=== PATIENT | female | born 1940 | race Hispanic/Latino ===

== ENCOUNTER 2019-02-12 12:55 | Observation (INO) | payer MEDICARE, OTHER ==
[~2019-02-12] VITALS: Ht 152.4 cm; Wt 79.2 kg
[~2019-02-12 12:55] MED LIST: ASPIR 8181 MG PO; CLONIDINE HCL0.3 MG PO; GLIMEPIRIDE4 MG PO; HYDRALAZINE HCL25 MG PO; LEVOTHROID100 MC1; LOSARTAN-HCTZ1 EAC2 PO; PANTOPRAZOLE SO40 MG PO; SIMVASTATIN40 MG PO; Z.0.BENTYL10 MG; Z.0.CLONIDINE HCL0.2; Z.0.LISINOPRIL40 MG; Z.0.LOPRESSOR50 MG; Z.0.SIMVASTATIN40 MG; [UNRECOGNIZED DRUG - OTHER]
--- OUTSIDE RECORDS SUMMARY | 2019-02-12 13:02 | XMS REPORT | Clinical Summary ---
Author Author [facility] Organization [facility] Address Unknown Phone Unavailable Care Team Providers [facility] Assistant Name Role Phone Reid Love MD PCP Allergies No Known Allergies Medications End Date Status Medication Sig Dispensed Refills Start Date Active clopidogrel (PLAVIX) 75 Take 75 mg by 0 mg tablet mouth daily. Active aspirin (ECOTRIN) 81 MG Take 81 mg by 0 enteric coated tablet mouth daily. Active simvastatin (ZOCOR) 40 MG Take 40 mg by 0 tablet mouth nightly. Active lisinopril Take 40 mg by 0 (PRINIVIL,ZESTRIL) 40 mg mouth daily. tablet Active hydrALAZINE (APRESOLINE) Take 25 mg by 0 25 MG tablet mouth 3 (three) times a day. Active triamterene-hydrochloroth Take 1 0 iazid (DYAZIDE) 37.5-25 capsule by mg per capsule mouth every morning. Active clonIDINE HCl (CATAPRES) Take 1.5 mg 0 0.3 MG tablet by mouth 2 (two) times a day. Active amLODIPine (NORVASC) 5 mg Take 5 mg by 0 tablet mouth daily. Active glimepiride (AMARYL) 4 MG Take 4 mg by 0 tablet mouth daily before breakfast. Active therapeutic multivitamin Take 1 tablet 0 (THERAGRAN) tablet by mouth daily. Active dicyclomine (BENTYL) 10 Take 10 mg by 0 MG capsule mouth 4 (four) times a day before meals and nightly. Active meclizine (ANTIVERT) 25 Take 25 mg by 0 mg tablet mouth 3 (three) times a day as needed for dizziness. Active omeprazole (PriLOSEC) 40 Take 40 mg by 0 MG capsule mouth daily. 09/20/2018 metoprolol tartrate Take 1 tablet 60 tablet 0 (LOPRESSOR) 25 mg tablet (25 mg total) 9 by mouth 2 (two) times a day for 30 days. Active Problems Problem Noted Date Left carotid stenosis 08/17/2018 S/P carotid endarterectomy 08/17/2018 Essential hypertension 08/17/2018 Acute blood loss as cause of postoperative anemia 08/17/2018 Encounters Care Team Description Date Type Specialty Miguel Scott 08/17/2018 Anesthesia Cardiothoracic Surgery Event Roberto Carlos Wilder MD ENDARTERECTOMY, CAROTID 08/17/2018 Surgery Cardiothoracic Surgery Roberto Carlos Wilder MD S/P carotid endarterectomy (Primary Dx); Carotid occlusion, left 08/17/2018 Hospital Cardiology - Encounter 08/21/2018 Lyubov Baker 08/17/2018 Telephone Employee Health Roberto Carlos Wilder MD Left carotid stenosis (Primary Dx) 08/09/2018 Office Visit Cardiovascular after 02/11/2018 Family History Medical History Relation Name Comments Ulcers Father Ulcers Mother Relation Name Status Comments Father Mother Social History Date Tobacco Use Types Packs/Day Years Used Never Assessed Sex Assigned at Date Recorded Not on file Industry Job Start Date Occupation Not on file Not on file Not on file Travel End Travel History Travel Start No recent travel history available. Last Filed Vital Signs Time Taken Vital Sign Reading 08/21/2018 7:34 AM CONTROLS PROJECT ENGINEER Blood Pressure 165/74 08/21/2018 7:34 AM CONTROLS PROJECT ENGINEER Pulse 79 08/21/2018 7:34 AM CONTROLS PROJECT ENGINEER Temperature 36.7 C (98.1 F) 08/21/2018 7:34 AM CONTROLS PROJECT ENGINEER Respiratory Rate 21 08/21/2018 7:34 AM CONTROLS PROJECT ENGINEER Oxygen Saturation 97% - Inhaled Oxygen - Concentration 08/21/2018 5:54 AM CONTROLS PROJECT ENGINEER Weight 75.7 kg (166 lb 12.8 oz) 08/17/2018 7:12 AM CONTROLS PROJECT ENGINEER Height 152.4 cm (5') 08/17/2018 7:12 AM CONTROLS PROJECT ENGINEER Body Mass Index 32.58 Plan of Treatment Health Maintenance Due Date Last Done Comments SHINGLES VACCINES (#1) 1991 65+ PNEUMOCOCCAL VACCINE 2006 (1 of 2 - PCV13) INFLUENZA VACCINE 03/01/2019 Implants Device Identifier Shelf Expiration Date Model / Serial / Lot Implanted Type Area Manufactur er 02/02/2023 [id number] / / Clip Ligtng Caryn Hemoclip Plus W/ Medical N/A: N/A TELEFLEX Tape Ti Med - [id number] Clips for MEDICAL Implanted: Qty: 1 on 08/17/2018 by Roberto Carlos Muse MD Use 01/26/2022 [id number] / / [id number] Kit Shunt Crtd Artery Rdopq Line Surgical N/A: N/A COVIDIEN 6in Strl Morton - [id number] Implants; MARIAELENA Implanted: 08/17/2018 (Quantity not Expanders; HEALTHCARE on file) Extenders; Surgical Wires 12/29/2022 [id number] / / [id number] Fabric Vasclr Grft Velour 3in 3in Vascular N/A: N/A ATRIUM 0.8cm 7.6cm Kaleb Hemashield - Graft MEDICAL [id number] STEPHANIE Implanted: 08/17/2018 (Quantity not on file) Procedures Comments Procedure Name Priority Date/Time Associated Diagnosis POC GLUCOSE Routine 08/21/2018 7:33 AM CONTROLS PROJECT ENGINEER POC GLUCOSE Routine 08/20/2018 10:03 PM CONTROLS PROJECT ENGINEER POC GLUCOSE Routine 08/20/2018 5:13 PM CONTROLS PROJECT ENGINEER POC GLUCOSE Routine 08/20/2018 12:32 PM CONTROLS PROJECT ENGINEER HC COMPLETE BLD COUNT STAT 08/20/2018 W/AUTO DIFF 9:50 AM CONTROLS PROJECT ENGINEER ECG 12-LEAD Routine 08/20/2018 8:54 AM CONTROLS PROJECT ENGINEER ECG 12-LEAD STAT 08/20/2018 8:53 AM CONTROLS PROJECT ENGINEER ESTIMATED GFR STAT 08/20/2018 8:45 AM CONTROLS PROJECT ENGINEER MAGNESIUM LEVEL STAT 08/20/2018 8:45 AM CONTROLS PROJECT ENGINEER BASIC METABOLIC PANEL STAT 08/20/2018 8:45 AM CONTROLS PROJECT ENGINEER TROPONIN STAT 08/20/2018 8:44 AM CONTROLS PROJECT ENGINEER THYROID STIMULATING STAT 08/20/2018 HORMONE 8:44 AM CONTROLS PROJECT ENGINEER POC GLUCOSE Routine 08/20/2018 8:03 AM CONTROLS PROJECT ENGINEER ECG 12-LEAD Routine 08/20/2018 6:28 AM CONTROLS PROJECT ENGINEER POC GLUCOSE Routine 08/20/2018 4:52 AM CONTROLS PROJECT ENGINEER POC GLUCOSE Routine 08/19/2018 9:03 PM CONTROLS PROJECT ENGINEER POC GLUCOSE Routine 08/19/2018 5:17 PM CONTROLS PROJECT ENGINEER POC GLUCOSE Routine 08/19/2018 11:30 AM CONTROLS PROJECT ENGINEER ECG 12-LEAD Routine 08/19/2018 8:38 AM CONTROLS PROJECT ENGINEER POC GLUCOSE Routine 08/19/2018 7:15 AM CONTROLS PROJECT ENGINEER CBC HEMOGRAM Routine 08/19/2018 4:05 AM CONTROLS PROJECT ENGINEER ESTIMATED GFR Routine 08/19/2018 12:00 AM CONTROLS PROJECT ENGINEER BASIC METABOLIC PANEL Routine 08/19/2018 12:00 AM CONTROLS PROJECT ENGINEER POC GLUCOSE Routine 08/18/2018 8:41 PM CONTROLS PROJECT ENGINEER POC GLUCOSE Routine 08/18/2018 6:08 PM CONTROLS PROJECT ENGINEER POC GLUCOSE Routine 08/18/2018 11:57 AM CONTROLS PROJECT ENGINEER POC GLUCOSE Routine 08/18/2018 8:18 AM CONTROLS PROJECT ENGINEER POC GLUCOSE Routine 08/18/2018 3:44 AM CONTROLS PROJECT ENGINEER ECG 12-LEAD Routine 08/18/2018 2:49 AM CONTROLS PROJECT ENGINEER POC GLUCOSE Routine 08/18/2018 2:00 AM CONTROLS PROJECT ENGINEER POC GLUCOSE Routine 08/18/2018 12:00 AM CONTROLS PROJECT ENGINEER POC GLUCOSE Routine 08/17/2018 10:15 PM CONTROLS PROJECT ENGINEER POC GLUCOSE Routine 08/17/2018 9:17 PM CONTROLS PROJECT ENGINEER POC GLUCOSE Routine 08/17/2018 7:28 PM CONTROLS PROJECT ENGINEER POC GLUCOSE Routine 08/17/2018 6:05 PM CONTROLS PROJECT ENGINEER POC GLUCOSE Routine 08/17/2018 5:02 PM CONTROLS PROJECT ENGINEER ECG 12-LEAD Routine 08/17/2018 4:30 PM CONTROLS PROJECT ENGINEER POC GLUCOSE Routine 08/17/2018 3:53 PM CONTROLS PROJECT ENGINEER XR CHEST 1 VW PORTABLE Routine 08/17/2018 2:52 PM CONTROLS PROJECT ENGINEER POC GLUCOSE Routine 08/17/2018 2:36 PM CONTROLS PROJECT ENGINEER SURGICAL PATHOLOGY Routine 08/17/2018 REQUEST 1:23 PM CONTROLS PROJECT ENGINEER CONSULT CARDIAC REHAB Routine 08/17/2018 PHASE 1 12:16 PM CONTROLS PROJECT ENGINEER POC GLUCOSE Routine 08/17/2018 12:08 PM CONTROLS PROJECT ENGINEER CENTRAL LINE Routine 08/17/2018 10:07 AM CONTROLS PROJECT ENGINEER Procedure Note - Anatoly Diaz MD - 08/17/2018 10:07 AM CONTROLS PROJECT ENGINEER Central line Performed by: Anatoly Diaz MD Authorized by: Anatoly Diaz MD Patient Location: OR Start Time: 08/17/2018 9:28 AM End Time: 08/17/2018 10:07 AM Staff: Anesthesio brendat: Anatoly Diaz MD Resident/C RNA/AA: Willian Marcos MD Performed by: Anesthesimarsha johnson Preprocedu re:patient identified , IV checked, site and side verified, risks and benefits discussed, procedure verified, surgical consent complete, patient position confirmed, monitors and equipment checked and pre-op evaluation complete MSBT: antiseptic used during central venous catheter insertion, all elements of maximal sterile barrier technique followed, hand hygiene performed prior to central venous catheter insertion, cap/gown used by other personnel during central venous catheter insertion, solutions labeled and all ports not used during insertion clamped Indication s: Indication s: Central pressure monitoring and vascular access Anesthesia : Anesthesia : General Procedure details: Patient position: Trendelenb urg Catheter Type: Double lumen Catheter Size: 8 Fr Catheter Site: internal jugular vein Catheter site laterality : Right Pre-proced ure: Landmarks identified Ultrasound guidance used: Yes Ultrasound image saved: Yes Number of attempts: 1 Successful placement: Yes Guidewire removal: Guidewire removal is confirmed Post-proc edure: Post-proce dure: line sutured, sterile dressing applied per protocol and ports flushed with saline Patient tolerance: Patient tolerated the procedure well with no immediate complicati ons ARTERIAL LINE Routine 08/17/2018 10:06 AM CONTROLS PROJECT ENGINEER Procedure Note - Anatoly Diaz MD - 08/17/2018 10:06 AM CONTROLS PROJECT ENGINEER Arterial line Performed by: Anatoly Diaz MD Authorized by: Anatoly Diaz MD Patient Location: OR Start Time: 08/17/2018 9:20 AM End Time: 08/17/2018 10:06 AM Staff: Anesthesio brendat: Anatoly Diaz MD Resident/C RNA/AA: Willian Marcos MD Performed by: Anesthesimarsha johnson Pre-proced ure: patient identified , IV checked, site and side verified, risks and benefits discussed, procedure verified, surgical consent complete, patient position confirmed, monitors and equipment checked and pre-op evaluation complete MSBT: antiseptic used, all elements of maximal sterile barrier technique followed, hand hygiene performed, cap/gown used by other personnel and solutions labeled Indication s: Indication s: multiple ABGs and hemodynami c monitoring Anesthesia : Anesthesia : General Procedure Details: Arterial Line placement: Placed pre-induct ion Line placement site: Radial Line placement side: Right Arterial line gauge: 20 G Number of attempts: 1 Ultrasound guidance used: Yes Post-proc edure: Post-proce dure: Sterile dressing applied Post procedure circulatio n, sensation, movement: Normal and unchanged Patient tolerance: Patient tolerated the procedure well with no immediate complicati ons GLUCOSE LEVEL, SYRINGE STAT 08/17/2018 9:41 AM CONTROLS PROJECT ENGINEER IONIZED CALCIUM, ARTERIAL STAT 08/17/2018 9:41 AM CONTROLS PROJECT ENGINEER HEMOGLOBIN, SYRINGE STAT 08/17/2018 9:41 AM CONTROLS PROJECT ENGINEER POTASSIUM, SYRINGE STAT 08/17/2018 9:41 AM CONTROLS PROJECT ENGINEER SODIUM LEVEL, SYRINGE STAT 08/17/2018 9:41 AM CONTROLS PROJECT ENGINEER ARTERIAL BLOOD GAS, STAT 08/17/2018 CORRECTED 9:41 AM CONTROLS PROJECT ENGINEER ACTIVATED CLOTTING TIME Routine 08/17/2018 9:38 AM CONTROLS PROJECT ENGINEER SC AN ELECTIVE Routine 08/17/2018 ENDOTRACHEAL AIRWAY 9:35 AM CONTROLS PROJECT ENGINEER Procedure Note - Anatoly Diaz MD - 08/17/2018 9:35 AM CONTROLS PROJECT ENGINEER ANESTHESIA INTUBATION Date/Time: 08/17/2018 9:10 AM Performed by: Anatoly Diaz MD Authorized by: Anatoly Diaz MD Location: OR Urgency: Elective Difficult Airway: No Anesthesio logist: Anatoly Diaz MD Resident/C RNA/AA: Willian Marcos MD Performed by: resident/C RNA/AA Preoxygena brittany with 100% O2: Yes C-spine Precaution s Maintained Throughout : No Mask Ventilatio n: Assisted mask Final Airway Type: Endotrache al airway Final Endotrache al Airway: ETT Cuffed: Yes Technique Used: Video laryngosco py Devices/Me thods Used in Placement: Intubatin g stylet Insertion Site: Oral Blade Type: Ulises Laryngosco pe Blade/Vide olaryngosc ope Blade Size: 3 ETT Size (mm): 8.0 Cuff at minimum occlusion pressure: Yes Measured from: Teeth ETT to Teeth (cm): 21 Placement Verified by: CO2 detection and direct visualizat ion Laryngosco pic view: Grade I - full view of glottis Rapid Sequence Induction (RSI): Yes Modified RSI: No Number of Attempts at Approach: 1 POC GLUCOSE Routine 08/17/2018 7:20 AM CONTROLS PROJECT ENGINEER HEMOGLOBIN, SYRINGE STAT 08/17/2018 7:15 AM CONTROLS PROJECT ENGINEER GLUCOSE LEVEL, SYRINGE STAT 08/17/2018 7:15 AM CONTROLS PROJECT ENGINEER SODIUM LEVEL, SYRINGE STAT 08/17/2018 7:15 AM CONTROLS PROJECT ENGINEER POTASSIUM, SYRINGE STAT 08/17/2018 7:15 AM CONTROLS PROJECT ENGINEER ECG PRE/POST OP STAT 08/17/2018 7:12 AM CONTROLS PROJECT ENGINEER ESTIMATED GFR Routine 08/17/2018 7:11 AM CONTROLS PROJECT ENGINEER BILIRUBIN DIRECT Routine 08/17/2018 7:11 AM CONTROLS PROJECT ENGINEER URINALYSIS SCREEN AND Routine 08/17/2018 MICROSCOPY, WITH REFLEX 7:11 AM CONTROLS PROJECT ENGINEER TO CULTURE LIPID PANEL Routine 08/17/2018 7:11 AM CONTROLS PROJECT ENGINEER MAGNESIUM LEVEL Routine 08/17/2018 7:11 AM CONTROLS PROJECT ENGINEER HEMOGLOBIN A1C Routine 08/17/2018 7:11 AM CONTROLS PROJECT ENGINEER PARTIAL THROMBOPLASTIN Routine 08/17/2018 TIME (PTT) 7:11 AM CONTROLS PROJECT ENGINEER PROTHROMBIN TIME WITH INR Routine 08/17/2018 7:11 AM CONTROLS PROJECT ENGINEER COMPREHENSIVE METABOLIC Routine 08/17/2018 PANEL 7:11 AM CONTROLS PROJECT ENGINEER HC COMPLETE BLD COUNT Routine 08/17/2018 W/AUTO DIFF 7:11 AM CONTROLS PROJECT ENGINEER URINE CULTURE Routine 08/17/2018 7:11 AM CONTROLS PROJECT ENGINEER after 02/11/2018 Results * POC glucose (08/21/2018 7:33 AM CONTROLS PROJECT ENGINEER) Only the most recent of 26 results within the time period is included. [facility] POC glucose 151 (H) 65 - 99 mg/dL [facility] Comment: [facility] Notified RN HOSPITAL Meter ID: [id number] Tubing Mill Operator: Luis Guzman Specimen Performing Organization Address City/State/Zipcode Phone Number [facility] DEPARTMENT OF [address] [place] [address] PATHOLOGY AND GENOMIC MEDICINE [address] * CBC with platelet and differential (08/20/2018 9:50 AM CONTROLS PROJECT ENGINEER) Only the most recent of 2 results within the time period is included. [facility] WBC 7.55 4.50 - 11.00 k/uL [facility] RBC 3.54 (L) 4.20 - 5.50 m/uL [facility] HGB 9.7 (L) 12.0 - 16.0 g/dL [facility] HCT 30.7 (L) 37.0 - 47.0 % [facility] MCV 86.7 82.0 - 100.0 fL [facility] MCH 27.4 27.0 - 34.0 pg [facility] MCHC 31.6 31.0 - 37.0 g/dL [facility] RDW - SD 42.2 37.0 - 55.0 fL [facility] MPV 9.2 8.8 - 13.2 fL [facility] Platelet count 362 150 - 400 k/uL [facility] Nucleated RBC 0.00 /100 WBC [facility] Neutrophils 55.7 39.0 - 69.0 % [facility] Lymphocytes 33.2 25.0 - 45.0 % [facility] Monocytes 8.5 0.0 - 10.0 % [facility] Eosinophils 1.7 0.0 - 5.0 % [facility] Basophils 0.4 0.0 - 1.0 % [facility] Immature 0.5Comment: "Immature 0.0 - 1.0 % [facility] granulocytes granulocytes" (promyelocytes, YAZIDI myelocytes, metamyelocytes) HOSPITAL Specimen Blood Performing Organization Address City[facility] Phone Number [facility] DEPARTMENT OF [address] [place] [address] PATHOLOGY AND GENOMIC MEDICINE [address] * ECG 12 lead (08/20/2018 8:54 AM CONTROLS PROJECT ENGINEER) Only the most recent of 5 results within the time period is included. Ventricular 105 [facility] rate Atrial rate 105 [facility] SC interval 142 [facility] QRSD interval 70 [facility] QT interval 332 [facility] QTC interval 438 [facility] P axis 1 45 [facility] QRS axis 1 12 [facility] T wave axis 64 [facility] EKG impression Sinus tachycardia-Possible [facility] MUSE Inferior infarct (cited on or before 10-SEP-2009)-Cannot rule out Anterior infarct (cited on or before 10-SEP-2009)-Abnormal ECG-In automated comparison with ECG of 20-AUG-2018 08:53,-No significant change was found- Specimen Narrative Performed At Performing Organization Address City[facility] Phone Number [facility] [address] [place] [address] * Estimated GFR (08/20/2018 8:45 AM CONTROLS PROJECT ENGINEER) Only the most recent of 3 results within the time period is included. [facility] Estimated GFR 86 mL/min/1.73 m2 [facility] Comment: [facility] rpretation G1 >=90 Normal or high G2 60-89Mildly decreased [id number] Mildly to moderately decreased [id number] Moderately to severely decreased G4 15-29Severely decreased G5 <15Kidney failure The eGFR was calculated using the Chronic Kidney Disease Epidemiology Collaboration (CKD-EPI) equation. Interpretation is based on recommendations of the National Kidney Foundation-Kidney Disease Outcomes Quality Initiative (NKF-KDOQI) published in 2014. Specimen Plasma specimen Performing Organization Address [facility] Phone Number [facility] [place] [address] PATHOLOGY AND GENOMIC MEDICINE [address] * Magnesium level (08/20/2018 8:45 AM CONTROLS PROJECT ENGINEER) Only the most recent of 2 results within the time period is included. [facility] Magnesium 1.8 1.6 - 2.4 mg/dL [facility] Specimen Plasma specimen Performing Organization Address [facility] Phone Number [facility] [place] [address] PATHOLOGY AND GENOMIC MEDICINE [address] * Basic metabolic panel (08/20/2018 8:45 AM CONTROLS PROJECT ENGINEER) Only the most recent of 2 results within the time period is included. [facility] Sodium 136 135 - 148 mEq/L [facility] Potassium 4.0 3.5 - 5.0 mEq/L [facility] Chloride 100 98 - 112 mEq/L [facility] CO2 24 24 - 31 mEq/L [facility] Anion gap 12@ANIO 7 - 15 mEq/L [facility] BUN 10 8 - 23 mg/dL [facility] Creatinine 0.63 0.50 - 0.90 mg/dL [facility] Glucose 207 (H) 65 - 99 mg/dL [facility] Calcium 8.3 (L) 8.8 - 10.2 mg/dL [facility] Specimen Plasma specimen Performing Organization Address City/State/Zipcode Phone Number [facility] DEPARTMENT OF [address] [place] [address] PATHOLOGY AND GENOMIC MEDICINE [address] * Troponin (08/20/2018 8:44 AM CONTROLS PROJECT ENGINEER) Pathologist [facility] Troponin <0.30 0.00 - 0.30 ng/mL [facility]: [place]IDI 0.30 - 1.49 HOSPITAL ng/mlMay indicate increased risk of acute coronary syndrome. >=1.5 ng/ml Consistent with acute myocardial infarction. The diagnostic value of a single normal or non-diagnostic result is questionable.Serial samples at 2-6 hour intervals are required to rule out acute myocardial injury. Specimen Plasma specimen Performing Organization Address City/[facility]/[place] [address] PATHOLOGY AND GENOMIC MEDICINE [address] * Thyroid stimulating hormone (08/20/2018 8:44 AM CONTROLS PROJECT ENGINEER) Pathologist [facility] TSH 0.85 0.27 - 4.20 uIU/mL [facility] Specimen Plasma specimen Performing Organization Address City/[facility]/Zipcode Phone Number [facility] [place] [address] PATHOLOGY AND GENOMIC MEDICINE [address] * CBC hemogram (08/19/2018 4:05 AM CONTROLS PROJECT ENGINEER) [facility] WBC 8.98 4.50 - 11.00 k/uL [facility] RBC 3.78 (L) 4.20 - 5.50 m/uL [facility] HGB 10.4 (L) 12.0 - 16.0 g/dL [facility] HCT 33.7 (L) 37.0 - 47.0 % [facility] MCV 89.2 82.0 - 100.0 fL [facility] MCH 27.5 27.0 - 34.0 pg [facility] MCHC 30.9 (L) 31.0 - 37.0 g/dL [facility] RDW - SD 44.0 37.0 - 55.0 fL [facility] MPV 9.2 8.8 - 13.2 fL [facility] Platelet count 356 150 - 400 k/uL [facility] Nucleated RBC 0.00 /100 WBC [facility] Specimen Blood Performing Organization Address City/State/Zipcode Phone Number [facility] DEPARTMENT OF [address] [place] [address] PATHOLOGY AND GENOMIC MEDICINE [address] [address] HOSPITAL * XR Chest 1 Vw Portable (08/17/2018 2:52 PM CONTROLS PROJECT ENGINEER) Specimen Narrative Performed At EXAMINATION:XR CHEST 1 VW PORTABLE RADIANT CLINICAL HISTORY:UVC line placementPost Operative COMPARISON:Chest x-ray 09/10/2009 IMPRESSION: Single frontal view reveals the presence of a right IJ central venous catheter with the tip overlying the SVC. Otherwise stable cardiomediastinal silhouette. No pneumothorax is appreciated. Linear opacification is seen within the right midlung. Left hemithorax is clear. Pleural margins are sharp. Presumed ice pack noted over the left shoulder. The remainder of the examination is unchanged. [facility]-[id number] Procedure Note Hm Interface, Radiology Results Incoming - 08/17/2018 3:25 PM CONTROLS PROJECT ENGINEER EXAMINATION: XR CHEST 1 VW PORTABLE CLINICAL HISTORY: UVC line placement Post Operative COMPARISON: Chest x-ray 09/10/2009 IMPRESSION: Single frontal view reveals the presence of a right IJ central venous catheter with the tip overlying the SVC. Otherwise stable cardiomediastinal silhouette. No pneumothorax is appreciated. Linear opacification is seen within the right midlung. Left hemithorax is clear. Pleural margins are sharp. Presumed ice pack noted over the left shoulder. The remainder of the examination is unchanged. [facility]-[id number] Performing Organization Address [facility]/Zipcode Phone Number [facility] [address] [place] [address] * Surgical pathology request (08/17/2018 1:23 PM CONTROLS PROJECT ENGINEER) [facility] DEPARTMENT OF PATHOLOGY AND GENOMIC MEDICINE Surgical See link below for PDF Lab [facility] DEPARTMENT pathology Report OF PATHOLOGY report AND GENOMIC MEDICINE Result status This is Final Report for [facility] DEPARTMENT [id number] OF PATHOLOGY AND GENOMIC MEDICINE Specimen Performing Organization Address City/State/Zipcode Phone Number [facility] DEPARTMENT OF [address] [place] [id number] PATHOLOGY AND GENOMIC MEDICINE * Sodium level, syringe (08/17/2018 9:41 AM CONTROLS PROJECT ENGINEER) Only the most recent of 2 results within the time period is included. Sodium, syringe 135 135 - 148 mEq/L [facility] Specimen Blood Performing Organization Address City/[facility] Phone Number [facility] [place] [address] PATHOLOGY AND [facility] MEDICINE [address] * Potassium, syringe (08/17/2018 9:41 AM CONTROLS PROJECT ENGINEER) Only the most recent of 2 results within the time period is included. Potassium, 4.6 3.5 - 5.0 mEq/L [facility] Specimen Blood Performing Organization Address City/[facility]ode Phone Number [facility] [place] [address] PATHOLOGY [address] * Ionized calcium, arterial (08/17/2018 9:41 AM CONTROLS PROJECT ENGINEER) Ionized 1.02 (L) 1.11 - 1.32 mmol/L [facility] Specimen Blood Performing Organization Address [facility] Phone Number [facility] [place] [address] PATHOLOGY AND [facility] MEDICINE [address] * Hemoglobin, syringe (08/17/2018 9:41 AM CONTROLS PROJECT ENGINEER) Only the most recent of 2 results within the time period is included. Hemoglobin, 10.2 (L) 12.0 - 16.0 g/dL [facility] Specimen Blood Performing Organization Address City/[facility]ode Phone Number [facility] [place] [address] PATHOLOGY AND [facility] MEDICINE [address] * Glucose level, syringe (08/17/2018 9:41 AM CONTROLS PROJECT ENGINEER) Only the most recent of 2 results within the time period is included. Glucose, 147 (H) 65 - 99 mg/dL [facility] Specimen Blood Performing Organization Address City/[facility]ode Phone Number [facility] [place] [address] PATHOLOGY AND [facility] MEDICINE [address] * Arterial blood gas, corrected (08/17/2018 9:41 AM CONTROLS PROJECT ENGINEER) [facility] pH, arterial 7.35 7.35 - 7.45 [facility] pCO2, arterial 44 35 - 45 mmHg [facility] pO2, arterial 346 (H) 80 - 90 mmHg [facility] Temperature, 35.8 Degrees C [facility] O2 saturation, 100 95 - 100 % [facility] arterial [facility] pH, arterial 7.37 [facility] pCO2, arterial 41 mmHg [facility] pO2, arterial 340 mmHg [facility] Base excess, -2 -2 - 2 mEq/L [facility] Specimen Blood Performing Organization Address City/State/Zipcode Phone Number [facility] [place] [address] PATHOLOGY AND GENOMIC MEDICINE [address] * Activated clotting time (08/17/2018 9:38 AM CONTROLS PROJECT ENGINEER) [facility] Activated 106 96 - 152 sec [facility] clotting time Comment: YAZIDI Meter ID: [id number] Tubing Mill Operator: Sandoval Milian Specimen Performing Organization Address City/State/Zipcode Phone Number [facility] DEPARTMENT OF [address] [place] [address] PATHOLOGY AND GENOMIC MEDICINE [address] * ECG Pre/Post Op (08/17/2018 7:12 AM CONTROLS PROJECT ENGINEER) [facility] Ventricular 75 [facility] rate Atrial rate 75 [facility] SC interval 146 [facility] QRSD interval 68 [facility] QT interval 376 [facility] QTC interval 419 [facility] P axis 1 38 [facility] QRS axis 1 3 [facility] T wave axis 39 [facility] MUSE EKG impression Normal sinus rhythm-Possible [facility] MUSE Inferior infarct , age undetermined-Abnormal ECG- Specimen Narrative Performed At Performing Organization Address City/[facility]/[place] [address] * Urinalysis screen and microscopy, with reflex to culture (08/17/2018 7:11 AM CONTROLS PROJECT ENGINEER) [facility] Specimen site Clean catch [facility] Color, UA Yellow [facility] Appearance, UA Clear [facility] Specific 1.014 1.001 - 1.035 [facility] gravity, [facility] pH, UA 7.0 5.0 - 8.5 [facility] Protein, UA Negative Negative [facility] Glucose, UA Negative Negative [facility] Ketones, UA Negative Negative [facility] Bilirubin, UA Negative Negative [facility] Blood, UA Negative Negative [facility] Nitrite, UA Negative Negative [facility] Urobilinogen, <2.0 <2.0 [facility] Leukocyte Negative Negative [facility] esterase, [facility] Epithelial 4 /HPF [facility] cells, [facility] WBC, UA 1 0 - 4 /HPF [facility] RBC, UA 1 0 - 5 /HPF [facility] Bacteria, UA None seen None seen [facility] Yeast, UA None seen [facility] Yeast with None seen [facility] Hyaline casts, 3 /LPF [facility] Specimen Urine Performing Organization Address [facility] Centercode Phone Number [facility] DEPARTMENT OF [address] [place] [address] PATHOLOGY AND GENOMIC MEDICINE [address] * Partial thromboplastin time, activated (08/17/2018 7:11 AM CONTROLS PROJECT ENGINEER) [facility] PTT 27.6 23.0 - 36.0 sec [facility] Comment: YAZIDI PTT therapeutic range for HOSPITAL unfractionated heparin is 61.0-112.0 seconds which corresponds to Anti-Xa 0.3-0.7 U/ml. Specimen Blood Performing Organization Address [facility] Centercode Phone Number [facility] [place] [address] PATHOLOGY AND GENOMIC MEDICINE [address] * Prothrombin time with INR (08/17/2018 7:11 AM CONTROLS PROJECT ENGINEER) [facility] Prothrombin 12.9 11.5 - 14.[address] [facility] INR 1.0 [facility] Comment: YAZIDI The International Normalized HOSPITAL Ratio (INR) is a therapeutic monitoring tool for patients who are stable on oral anticoagulant therapy. An INR of 2.0-3.0 is suggested for deep vein thrombosis/pulmonary embolism. Specimen Blood Performing Organization Address City/[facility]/Zipcode Phone Number [facility] DEPARTMENT OF [address] [place] [address] PATHOLOGY AND [facility] MEDICINE [address] * Urine culture (08/17/2018 7:11 AM CONTROLS PROJECT ENGINEER) Urine culture SEE COMMENTComment: [facility] Bacteriuria screen negative. [facility] Specimen Performing Organization Address City/[facility]/Zipcode Phone Number [facility] [place] [address] PATHOLOGY AND [facility] MEDICINE [address] * Hemoglobin A1c (08/17/2018 7:11 AM CONTROLS PROJECT ENGINEER) Hemoglobin A1C 7.9 (H) 4.0 - 5.6 % [facility] Comment: YAZIDI HbA1c cutoffs for diagnosing HOSPITAL diabetes: 4.0% - 5.6%=normal 5.7% - 6.4%=increased risk for diabetes (prediabetes) >=6.5%=diabetes Goals for glycemic control (ADA 2016) < 7.0%Target for non adults with diabetes. More or less stringent targets may be appropriate for individual patients. <7.5% Target for Children and adolescents with type 1 diabetes. Specimen Blood Performing Organization Address [facility]/Zipcode Phone Number [facility] [place] [address] PATHOLOGY [address] * Bilirubin direct (08/17/2018 7:11 AM CONTROLS PROJECT ENGINEER) Bilirubin <0.2 0.0 - 0.3 mg/dL [facility] Specimen Plasma specimen Performing Organization Address City/State/Zipcode Phone Number [facility] DEPARTMENT OF [address] [place] [address] PATHOLOGY AND [facility] MEDICINE [address] * Lipid panel (08/17/2018 7:11 AM CONTROLS PROJECT ENGINEER) Cholesterol 145 <200 mg/dL [facility] Triglycerides 209 (H) <150 mg/dL [facility] HDL cholesterol 40 >40 mg/dL [facility] LDL cholesterol 92Comment: Result obtained by <100 mg/dL [facility] LDL measurement [facility] Lipid panel [facility]Prem[facility] interpretation Comment: YAZIDI Total Cholesterol HOSPITAL (mg/dL) <200 Desirable 200-239Borderline -high >=240High Triglycerides (mg/dL) <150 Normal 150-199Borderline -high 200-499High >=500Very high HDL Cholesterol (mg/dL) <40Low (male) <40Low (female) LDL Cholesterol (mg/dL) <100 Optimal 100-129Near or above optimal 130-159Borderline -high 160-189High >=190Very high Risk Catergories that modify LDL goals. Risk Catergories LDL goal (mg/dL) CHD and CHD risk equivalent<100 (10-year risk >20%) Multiple (2+) risk factors <130 (10-year risk=<20%) 0-1 risk factors <160 (<10-year risk) Defining levels of lipids in metabolic syndrome Triglycerides >=150 mg/dL HDL Cholesterol Men <40 mg/dL Women <40 mg/dL Non-HDL cholesterol is a second target for therapy in persons with high triglycerides (>=200 mg/dL) Specimen Plasma specimen Performing Organization Address City/State/Zipcooh Phone Number [facility] DEPARTMENT OF [address] [place] [address] PATHOLOGY AND GENOMIC MEDICINE [address] * Comprehensive metabolic panel (08/17/2018 7:11 AM CONTROLS PROJECT ENGINEER) Sodium 133 (L) 135 - 148 mEq/L [facility] Potassium 4.9 3.5 - 5.0 mEq/L [facility] Chloride 94 (L) 98 - 112 mEq/L [facility] CO2 27 24 - 31 mEq/L [facility] Anion gap 12@ANIO 7 - 15 mEq/L [facility] BUN 13 8 - 23 mg/dL [facility] Creatinine 0.87 0.50 - 0.90 mg/dL [facility] Glucose 169 (H) 65 - 99 mg/dL [facility] Calcium 9.4 8.8 - 10.2 mg/dL [facility] Protein 7.5 6.3 - 8.3 g/dL [facility] Comment: [facility] 4.6-7.0 g/dL 1 week 4.4-7.6 g/dL 7 months-1year 5.1-7.3 g/dL 1-2 years5.6-7 .5 g/dL >3 years6.0-8 .0 g/dL 18-150 6.3-8.3 g/dL Albumin 3.5 3.5 - 5.0 g/dL [facility] A/G ratio 0.9 0.7 - 3.8 [facility] Alkaline 80 35 - 104 U/L [facility] phosphatase [facility] AST 43 (H) 10 - 35 U/L [facility] ALT 28 5 - 50 U/L [facility] Total bilirubin 0.5 0.0 - 1.2 mg/dL [facility] Specimen Plasma specimen Performing Organization Address City/State/Zipcode Phone Number [facility] DEPARTMENT OF [address] [place] [address] PATHOLOGY AND GENOMIC MEDICINE [place] [id number] HOSPITAL after 02/11/2018 Insurance Type Payer Benefit Subscriber ID Effective Phone Address Plan / Dates Group Medicare MEDICARE MEDICARE xxxxxxxxxx 2006- [facility], PART A AND Present [place] B Medicaid MEDICAID MEDICAID xxxxxxxxx 2011-P resent Advance Directives Patient has advance care planning documents on file. For more information, kimberly mcnulty contact: [facility] [address] [place] [phone]
--- OUTSIDE RECORDS SUMMARY | 2019-02-12 13:06 | XMS REPORT ---
Author Author [facility] Address Unknown Phone Unavailable Care Team Providers Care Climatologist Name Role Phone Unavailable Unavailable Payers Payer Name Policy Type Policy Number Effective Date Expiration Date Problems This patient has no known problems. Allergies, Adverse Reactions, Alerts Allergy Name Allergy Type Status Severity Reaction(s) Onset Date Inactive Date Treating Clinician Comments No Known Allergies DA Active U 2014-01-01 00:00:00 Medications This patient has no known medications. Encounters Start Date/Time End Date/Time Encounter Type Admission Type Attending Clinicians Care Facility Care Department Encounter ID 2019-02-09 19:58:00 2019-02-09 19:58:00 Emergency E [id number] Results Test Description Test Time Test Comments Text Results Atomic Results Result Comments MRI Brain w/ + w/o Contrast 2018-05-26 13:59:23 Patient: ARCHANA HERNANDEZ Date/Time05/26/2018 13:37 CDTReason for ExamD35.2 Z48.811ReportMRI Brain w/ + w/o ContrastLOCATION: [id number]: D35.2 Z48.811Comparison studies: MRI of the brain and pituitary gland 04/23/2016.TECHNIQUE:Multiplanar, multisequence MRI of the brain (including diffusion-weighted imaging) and pituitary gland was performed before and after the administration of intravenous contrast. Dynamic coronal T1 weighted images through the sella were obtained.DISCUSSION:Scalp/bone marrow: Unremarkable.Brain sulci: Mildly prominent.Ventricles: Mild compensatory dilatation.Extra-axial spaces:No masses or fluid collections.Sellar/Suprasellar region:The sella is mildly expanded with apparent transsphenoidal resection changes.Approximately 0.4 x 1 x 1.1 cm hypoenhancing lesion in the left sella has not significantly changed.This lesion continues to abut the left cavernous sinus without gross invasion.The pituitary stalk remains deviated towards the right.The optic chiasm remains mildly atrophic and slightly tented inferiorly.The cavernous sinuses are otherwise normal in size and enhance symmetrically.Meckel's caves are clear.The cavernous internal carotid artery flow voids are preserved.Parenchyma:Scattered T2/FLAIR hyperintense foci throughout the supratentorial white matter are likely chronic microvascular ischemic changes.Mild focal encephalomalacia in the left occipital pole may be from remote infarct.Otherwise, no mass, hemorrhage, or acute vascular insults.Vessels: Normal flow voids in major arteries and veins.Craniocervical junction: Unremarkable.Incidental findings: The left ocular lens is thinned. There is a small T2 hyperintense retention cyst or polyp in the left maxillary sinus.IMPRESSION:1. No acute intracranial abnormalities.2. 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 Mild supratentorial chronic microvascular ischemic change. Mild generalized cerebral volume loss.Exam Date/Time05/26/2018 13:37 CDTReport4. 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 Final Dictated by: MD Coleman Alfred EDictated DT/TM: 05/26/2018 1:46 pmSigned by: MD Coleman Alfred ESigned (Electronic Signature): 05/26/2018 1:59 pm
[2019-02-12] MEDS ORDERED: MAGNESIUM/ALUMINUM/SIMETHICONE 30 ML UDC PO ONE (14:00)
[2019-02-12] MEDS ORDERED: LIDOCAINE VISC 2% SOLN 15 ML UDC PO ONE (14:00)
[2019-02-12] MEDS: BELLADONNA ALK/PHENOBARBITAL 5 ML UDC PO SCH ×2 (14:20→21:46)
[2019-02-12 14:47] LABS: BASOPHILS # (AUTO) 0.1 (0.0-0.1); BASOPHILS % 0.5 % (0.0-1.0); EOSINOPHILS # (AUTO) 0.2 (0.0-0.4); EOSINOPHILS % 1.7 % (0.0-6.0); HEMATOCRIT 36.1 % (34.2-44.1); HEMOGLOBIN 11.7 g/dL (12.0-16.0); LYMPHOCYTES # (AUTO) 3.8 (1.0-3.2); LYMPHOCYTES % 38.1 % (18.0-39.1); MEAN CORPUSCULAR HEMOGLOBIN 25.9 pg (28-32); MEAN CORPUSCULAR HGB CONC 32.4 g/dL (31-35); MEAN CORPUSCULAR VOLUME 79.9 fL (81-99); MONOCYTES # (AUTO) 0.8 (0.2-0.8); MONOCYTES % 7.8 % (4.4-11.3); NEUTROPHILS # (AUTO) 5.1 (2.1-6.9); NEUTROPHILS % 51.6 % (38.7-80.0); PLATELET COUNT 405 x10e3/uL (140-360); RED BLOOD COUNT 4.52 x10e6/uL (3.6-5.1); RED CELL DISTRIBUTION WIDTH 13.3 % (11.7-14.4)
[2019-02-12 15:11] LABS: ALBUMIN 3.5 g/dL (3.5-5.0); ALBUMIN/GLOBULIN RATIO 0.9 (0.8-2.0); ANION GAP 15.6 mmol/L (8-16); BILIRUBIN,URINE NEGATIVE (NEGATIVE); CALCIUM 9.2 mg/dL (8.4-10.2); CLARITY,URINE CLEAR (CLEAR); COLOR,URINE YELLOW (YELLOW); CREATININE, SERUM 0.99 mg/dL (0.57-1.11); KETONES,URINE NEGATIVE (NEGATIVE); LEUKOCYTE ESTERASE ,URINE NEGATIVE (NEGATIVE); NITRITE,URINE NEGATIVE (NEGATIVE); POTASSIUM 5.6 mmol/L (3.5-5.1); PROTEIN,URINE DIPSTICK NEGATIVE (NEGATIVE); URINE UROBILINOGEN 0.2 mg/dL (0.2 - 1)
[2019-02-12 15:22] LABS: EPITHELIAL CELLS,URINE RARE /LPF
[2019-02-12] MEDS ORDERED: DEXTROSE 50% SYRINGE 50 ML IV STA (15:39)
[2019-02-12] MEDS ORDERED: SODIUM CHLORIDE 0.9% 1000ML 1,000 ML IV ONE (15:45)
[2019-02-12] MEDS ORDERED: SOD POLYSTYRENE SULFONATE SUSP 15 GM/60 ML BTL PO ONE (15:45)
[2019-02-12] MEDS ORDERED: INSULIN REGULAR, HUMAN 100 UNIT/1 ML 3ML VIAL IV ONE (15:45)
--- NOTE | 2019-02-12 17:47 | Diagnostic Imaging Report ---
EXAM: CT Abdomen and Pelvis WITH intravenous contrast INDICATION: Abdominal pain COMPARISON: CT abdomen pelvis of 07/15/2011 TECHNIQUE: Abdomen and pelvis were scanned utilizing a multidetector helical scanner from the lung base to the pubic symphysis after administration of IV contrast. Coronal and sagittal reformations were obtained. Routine protocol was performed. Scan was performed when during portal venous phase. IV CONTRAST: 100 mL of Isovue-370 ORAL CONTRAST: Water COMPLICATIONS: None RADIATION DOSE: Total DLP: 681.4 mGy*cm Dose modulation, iterative reconstruction, and/or weight based adjustment of the mA/kV was utilized to reduce the radiation dose to as low as reasonably achievable. FINDINGS: LOWER THORAX: Minimal bibasilar subsegmental atelectasis. Consolidation. HEPATOBILIARY: Diffuse hepatic parenchymal hypoattenuation consistent with hepatic steatosis. No focal liver lesions. No biliary ductal dilatation. The gallbladder is decompressed. 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 PANCREAS: No focal masses or ductal dilatation. ADRENALS: No adrenal nodules. KIDNEYS/URETERS: No hydronephrosis, renal calculi, or solid mass lesions. 1 cm simple cyst in the lower pole of the left kidney. PELVIC ORGANS/BLADDER: Unremarkable. PERITONEUM / RETROPERITONEUM: No free air or fluid. LYMPH NODES: No lymphadenopathy. VESSELS: Scattered atherosclerotic calcifications of the abdominal aorta and major branches. GI TRACT: Descending and sigmoid colon diverticulosis without CT evidence of diverticulitis. No abnormal bowel thickening or bowel distention. Normal appendix. BONES AND SOFT TISSUES: Small fat-containing umbilical hernia. Multilevel degenerative changes of the visualized spine. No suspicious lytic or blastic lesions. IMPRESSION: Hepatic steatosis. Normal appendix. Colonic diverticulosis without CT evidence of diverticulitis. Signed by: Rochelle Ogden MD on 02/12/2019 5:43 PM
[2019-02-12] MEDS ORDERED: SODIUM CHLORIDE 0.9% 50ML 50 ML ONE (19:56)
[2019-02-12] MEDS ORDERED: IOPAMIDOL 370 MG/ML 200 ML INFUS..BTL INJ ONE (19:56)
[2019-02-12] MEDS ORDERED: SODIUM CHLORIDE 0.9% 1000ML 1,000 ML IV SCH (20:46)
[2019-02-12] MEDS ORDERED: ONDANSETRON HCL INJ 2MG/ML 2ML 2 MG/ML VIAL IV PRN (21:00)
[2019-02-12] MEDS ORDERED: INSULIN REGULAR, HUMAN 100 UNIT/1 ML 3ML VIAL SQ SCH (21:00)
[2019-02-12] MEDS ORDERED: DEXTROSE 50% SYRINGE 50 ML IV PRN (21:00)
[2019-02-12] MEDS: DICYCLOMINE HCL 10 MG CAP PO SCH (21:48)
[2019-02-12 22:33] VITALS: BP 166/70
--- NOTE | 2019-02-12 22:33 | NUR ---
patient is a new admit that arrived via wheelchair. patient is awake and talking. patient has been assisted into the bed. bed is in lowest the position.
--- OUTSIDE RECORDS SUMMARY | 2019-02-12 22:49 | XMS REPORT | Clinical Summary ---
Author Author [facility] Organization [facility] Address Unknown Phone Unavailable Care Team Providers Care Laboratory Clerk Name Role Phone Reid Love MD PCP [...] Taken Vital Sign Reading 08/21/2018 7:34 AM MANAGER OUTREACH Blood Pressure 165/74 08/21/2018 7:34 AM MANAGER OUTREACH Pulse 79 08/21/2018 7:34 AM MANAGER OUTREACH Temperature 36.7 C (98.1 F) 08/21/2018 7:34 AM MANAGER OUTREACH Respiratory Rate 21 08/21/2018 7:34 AM MANAGER OUTREACH Oxygen Saturation 97% - Inhaled Oxygen - Concentration 08/21/2018 5:54 AM MANAGER OUTREACH Weight 75.7 kg (166 lb 12.8 oz) 08/17/2018 7:12 AM MANAGER OUTREACH Height 152.4 cm (5') 08/17/2018 7:12 AM MANAGER OUTREACH Body Mass Index 32.58 Plan of Treatment Health Maintenance Due Date Last Done Comments SHINGLES VACCINES (#1) 1991 65+ PNEUMOCOCCAL VACCINE 2006 (1 of 2 - PCV13) INFLUENZA VACCINE 03/01/2019 Implants Device Identifier Shelf Expiration Date Model / Serial / Lot Implanted Type Area Manufactur er 02/02/2023 [id number] / / Clip Ligtng Caryn Hemoclip Plus W/ Medical N/A: N/A TELEFLEX Tape Ti Med - [id number] Clips for MEDICAL Implanted: Qty: 1 on 08/17/2018 by Roberto Carlos Muse MD Use 01/26/2022 [id number] / / [id number] Kit Shunt Crtd Artery Rdopq Line Surgical N/A: N/A COVIDIEN 6in Strl [place] - [id number] Implants; MARIAELENA Implanted: 08/17/2018 (Quantity not Expanders; HEALTHCARE on file) Extenders; Surgical Wires 12/29/2022 [id number] / / [id number] Fabric Vasclr Grft Velour 3in 3in Vascular N/A: N/A ATRIUM 0.8cm 7.6cm Kaleb Hemashield - Graft MEDICAL [id number] STEPHANIE Implanted: 08/17/2018 (Quantity not on file) Procedures Comments Procedure Name Priority Date/Time Associated Diagnosis POC GLUCOSE Routine 08/21/2018 7:33 AM MANAGER OUTREACH POC GLUCOSE Routine 08/20/2018 10:03 PM MANAGER OUTREACH POC GLUCOSE Routine 08/20/2018 5:13 PM MANAGER OUTREACH POC GLUCOSE Routine 08/20/2018 12:32 PM MANAGER OUTREACH HC COMPLETE BLD COUNT STAT 08/20/2018 W/AUTO DIFF 9:50 AM MANAGER OUTREACH ECG 12-LEAD Routine 08/20/2018 8:54 AM MANAGER OUTREACH ECG 12-LEAD STAT 08/20/2018 8:53 AM MANAGER OUTREACH ESTIMATED GFR STAT 08/20/2018 8:45 AM MANAGER OUTREACH MAGNESIUM LEVEL STAT 08/20/2018 8:45 AM MANAGER OUTREACH BASIC METABOLIC PANEL STAT 08/20/2018 8:45 AM MANAGER OUTREACH TROPONIN STAT 08/20/2018 8:44 AM MANAGER OUTREACH THYROID STIMULATING STAT 08/20/2018 HORMONE 8:44 AM MANAGER OUTREACH POC GLUCOSE Routine 08/20/2018 8:03 AM MANAGER OUTREACH ECG 12-LEAD Routine 08/20/2018 6:28 AM MANAGER OUTREACH POC GLUCOSE Routine 08/20/2018 4:52 AM MANAGER OUTREACH POC GLUCOSE Routine 08/19/2018 9:03 PM MANAGER OUTREACH POC GLUCOSE Routine 08/19/2018 5:17 PM MANAGER OUTREACH POC GLUCOSE Routine 08/19/2018 11:30 AM MANAGER OUTREACH ECG 12-LEAD Routine 08/19/2018 8:38 AM MANAGER OUTREACH POC GLUCOSE Routine 08/19/2018 7:15 AM MANAGER OUTREACH CBC HEMOGRAM Routine 08/19/2018 4:05 AM MANAGER OUTREACH ESTIMATED GFR Routine 08/19/2018 12:00 AM MANAGER OUTREACH BASIC METABOLIC PANEL Routine 08/19/2018 12:00 AM MANAGER OUTREACH POC GLUCOSE Routine 08/18/2018 8:41 PM MANAGER OUTREACH POC GLUCOSE Routine 08/18/2018 6:08 PM MANAGER OUTREACH POC GLUCOSE Routine 08/18/2018 11:57 AM MANAGER OUTREACH POC GLUCOSE Routine 08/18/2018 8:18 AM MANAGER OUTREACH POC GLUCOSE Routine 08/18/2018 3:44 AM MANAGER OUTREACH ECG 12-LEAD Routine 08/18/2018 2:49 AM MANAGER OUTREACH POC GLUCOSE Routine 08/18/2018 2:00 AM MANAGER OUTREACH POC GLUCOSE Routine 08/18/2018 12:00 AM MANAGER OUTREACH POC GLUCOSE Routine 08/17/2018 10:15 PM MANAGER OUTREACH POC GLUCOSE Routine 08/17/2018 9:17 PM MANAGER OUTREACH POC GLUCOSE Routine 08/17/2018 7:28 PM MANAGER OUTREACH POC GLUCOSE Routine 08/17/2018 6:05 PM MANAGER OUTREACH POC GLUCOSE Routine 08/17/2018 5:02 PM MANAGER OUTREACH ECG 12-LEAD Routine 08/17/2018 4:30 PM MANAGER OUTREACH POC GLUCOSE Routine 08/17/2018 3:53 PM MANAGER OUTREACH XR CHEST 1 VW PORTABLE Routine 08/17/2018 2:52 PM MANAGER OUTREACH POC GLUCOSE Routine 08/17/2018 2:36 PM MANAGER OUTREACH SURGICAL PATHOLOGY Routine 08/17/2018 REQUEST 1:23 PM MANAGER OUTREACH CONSULT CARDIAC REHAB Routine 08/17/2018 PHASE 1 12:16 PM MANAGER OUTREACH POC GLUCOSE Routine 08/17/2018 12:08 PM MANAGER OUTREACH CENTRAL LINE Routine 08/17/2018 10:07 AM MANAGER OUTREACH Procedure Note - Anatoly Diaz MD - 08/17/2018 10:07 AM MANAGER OUTREACH Central line Performed by: Anatoly Diaz MD [...] ons ARTERIAL LINE Routine 08/17/2018 10:06 AM MANAGER OUTREACH Procedure Note - Anatoly Diaz MD - 08/17/2018 10:06 AM MANAGER OUTREACH Arterial line Performed by: Anatoly Diaz MD [...] GLUCOSE LEVEL, SYRINGE STAT 08/17/2018 9:41 AM MANAGER OUTREACH IONIZED CALCIUM, ARTERIAL STAT 08/17/2018 9:41 AM MANAGER OUTREACH HEMOGLOBIN, SYRINGE STAT 08/17/2018 9:41 AM MANAGER OUTREACH POTASSIUM, SYRINGE STAT 08/17/2018 9:41 AM MANAGER OUTREACH SODIUM LEVEL, SYRINGE STAT 08/17/2018 9:41 AM MANAGER OUTREACH ARTERIAL BLOOD GAS, STAT 08/17/2018 CORRECTED 9:41 AM MANAGER OUTREACH ACTIVATED CLOTTING TIME Routine 08/17/2018 9:38 AM MANAGER OUTREACH MT AN ELECTIVE Routine 08/17/2018 ENDOTRACHEAL AIRWAY 9:35 AM MANAGER OUTREACH Procedure Note - Anatoly Diaz MD - 08/17/2018 9:35 AM MANAGER OUTREACH ANESTHESIA INTUBATION Date/Time: 08/17/2018 9:10 AM Performed [...] 1 POC GLUCOSE Routine 08/17/2018 7:20 AM MANAGER OUTREACH HEMOGLOBIN, SYRINGE STAT 08/17/2018 7:15 AM MANAGER OUTREACH GLUCOSE LEVEL, SYRINGE STAT 08/17/2018 7:15 AM MANAGER OUTREACH SODIUM LEVEL, SYRINGE STAT 08/17/2018 7:15 AM MANAGER OUTREACH POTASSIUM, SYRINGE STAT 08/17/2018 7:15 AM MANAGER OUTREACH ECG PRE/POST OP STAT 08/17/2018 7:12 AM MANAGER OUTREACH ESTIMATED GFR Routine 08/17/2018 7:11 AM MANAGER OUTREACH BILIRUBIN DIRECT Routine 08/17/2018 7:11 AM MANAGER OUTREACH URINALYSIS SCREEN AND Routine 08/17/2018 MICROSCOPY, WITH REFLEX 7:11 AM MANAGER OUTREACH TO CULTURE LIPID PANEL Routine 08/17/2018 7:11 AM MANAGER OUTREACH MAGNESIUM LEVEL Routine 08/17/2018 7:11 AM MANAGER OUTREACH HEMOGLOBIN A1C Routine 08/17/2018 7:11 AM MANAGER OUTREACH PARTIAL THROMBOPLASTIN Routine 08/17/2018 TIME (PTT) 7:11 AM MANAGER OUTREACH PROTHROMBIN TIME WITH INR Routine 08/17/2018 7:11 AM MANAGER OUTREACH COMPREHENSIVE METABOLIC Routine 08/17/2018 PANEL 7:11 AM MANAGER OUTREACH HC COMPLETE BLD COUNT Routine 08/17/2018 W/AUTO DIFF 7:11 AM MANAGER OUTREACH URINE CULTURE Routine 08/17/2018 7:11 AM MANAGER OUTREACH after 02/11/2018 Results * POC glucose (08/21/2018 7:33 AM MANAGER OUTREACH) Only the most recent of 26 results within the time period is included. [facility] POC glucose 151 (H) 65 - 99 mg/dL [place] Comment: [facility] Notified RN HOSPITAL Meter ID: [id number] Wall Insulation Sprayer: Luis Guzman Specimen Performing Organization Address City/State/Zipcode Phone Number [facility] DEPARTMENT OF [address] [place] [address] PATHOLOGY AND GENOMIC MEDICINE [address] * CBC with platelet and differential (08/20/2018 9:50 AM MANAGER OUTREACH) Only the most recent of 2 results within the time period is included. [facility] WBC 7.55 4.50 - 11.00 k/uL [facility] RBC 3.54 (L) 4.20 - 5.50 m/uL [facility] HGB 9.7 (L) 12.0 - 16.0 g/dL [facility] HCT 30.7 (L) 37.0 - 47.0 % [facility] MCV 86.7 82.0 - 100.0 fL [facility] MCH 27.4 27.0 - 34.0 pg [facility] MCHC 31.6 31.0 - 37.0 g/dL [facility] RDW - SD 42.2 37.0 - 55.0 fL [facility] MPV 9.2 8.8 - 13.2 fL [facility] Platelet count 362 150 - 400 k/uL [facility] Nucleated RBC 0.00 /100 WBC [facility] Neutrophils 55.7 39.0 - 69.0 % [facility] Lymphocytes 33.2 25.0 - 45.0 % [facility] Monocytes 8.5 0.0 - 10.0 % [facility] Eosinophils 1.7 0.0 - 5.0 % [facility] Basophils 0.4 0.0 - 1.0 % [facility] Immature 0.5Comment: "Immature 0.0 - 1.0 % [place] granulocytes granulocytes" (promyelocytes, [facility] myelocytes, metamyelocytes) HOSPITAL Specimen Blood Performing Organization Address City/[facility] Phone Number [facility] DEPARTMENT OF [address] [place] [address] PATHOLOGY AND GENOMIC MEDICINE [address] * ECG 12 lead (08/20/2018 8:54 AM MANAGER OUTREACH) Only the most recent of 5 results within the time period is included. Ventricular 105 [facility] rate Atrial rate 105 [facility] MT interval 142 [facility] QRSD interval 70 [facility] QT interval 332 [facility] QTC interval 438 [facility] P axis 1 45 [facility] QRS axis 1 12 [facility] T wave axis 64 [facility] EKG impression Sinus tachycardia-Possible [facility] MUSE Inferior infarct (cited on or before 10-SEP-2009)-Cannot rule out Anterior infarct (cited on or before 10-SEP-2009)-Abnormal ECG-In automated comparison with ECG of 20-AUG-2018 08:53,-No significant change was found- Specimen Narrative Performed At Performing Organization Address City/[facility] Phone Number [facility] [address] [place] [address] * Estimated GFR (08/20/2018 8:45 AM MANAGER OUTREACH) Only the most recent of 3 results within the time period is included. [facility] Estimated GFR 86 mL/min/1.73 m2 [place] Comment: [facility] rpretation G1 >=90 Normal or high G2 60-89Mildly decreased [id number] Mildly to moderately decreased [id number] Moderately to severely decreased G4 15-29Severely decreased G5 <15Kidney failure The eGFR was calculated using the Chronic Kidney Disease Epidemiology Collaboration (CKD-EPI) equation. Interpretation is based on recommendations of the National Kidney Foundation-Kidney Disease Outcomes Quality Initiative (NKF-KDOQI) published in 2014. Specimen Plasma specimen Performing Organization Address City/[facility] Phone Number [facility] [place] [address] PATHOLOGY AND GENOMIC MEDICINE [address] * Magnesium level (08/20/2018 8:45 AM MANAGER OUTREACH) Only the most recent of 2 results within the time period is included. [facility] Magnesium 1.8 1.6 - 2.4 mg/dL [facility] Specimen Plasma specimen Performing Organization Address [facility] Phone Number [facility] [place] [address] PATHOLOGY AND GENOMIC MEDICINE [address] * Basic metabolic panel (08/20/2018 8:45 AM MANAGER OUTREACH) Only the most recent of 2 results within the time period is included. [facility] Sodium 136 135 - 148 mEq/L [facility] Potassium 4.0 3.5 - 5.0 mEq/L [facility] Chloride 100 98 - 112 mEq/L [facility] CO2 24 24 - 31 mEq/L [facility] Anion gap 12@ANIO 7 - 15 mEq/L [facility] BUN 10 8 - 23 mg/dL [facility] Creatinine 0.63 0.50 - 0.90 mg/dL [facility] Glucose 207 (H) 65 - 99 mg/dL [facility] Calcium 8.3 (L) 8.8 - 10.2 mg/dL [facility] Specimen Plasma specimen Performing Organization Address City/State/Zipcode Phone Number [facility] DEPARTMENT OF [address] [place] [address] PATHOLOGY AND GENOMIC MEDICINE [address] * Troponin (08/20/2018 8:44 AM MANAGER OUTREACH) Pathologist [facility] Troponin <0.30 0.00 - 0.30 ng/mL [facility]: [facility] 0.30 - 1.49 HOSPITAL ng/mlMay indicate increased risk of acute coronary syndrome. >=1.5 ng/ml Consistent with acute myocardial infarction. The diagnostic value of a single normal or non-diagnostic result is questionable.Serial samples at 2-6 hour intervals are required to rule out acute myocardial injury. Specimen Plasma specimen Performing Organization Address City/[facility]/[place] [address] PATHOLOGY AND GENOMIC MEDICINE [address] * Thyroid stimulating hormone (08/20/2018 8:44 AM MANAGER OUTREACH) Pathologist [facility] TSH 0.85 0.27 - 4.20 uIU/mL [facility] Specimen Plasma specimen Performing Organization Address City/[facility]/Zipcode Phone Number [facility] [place] [address] PATHOLOGY AND GENOMIC MEDICINE [address] * CBC hemogram (08/19/2018 4:05 AM MANAGER OUTREACH) [facility] WBC 8.98 4.50 - 11.00 k/uL [facility] RBC 3.78 (L) 4.20 - 5.50 m/uL [facility] HGB 10.4 (L) 12.0 - 16.0 g/dL [facility] HCT 33.7 (L) 37.0 - 47.0 % [facility] MCV 89.2 82.0 - 100.0 fL [facility] MCH 27.5 27.0 - 34.0 pg [facility] MCHC 30.9 (L) 31.0 - 37.0 g/dL [facility] RDW - SD 44.0 37.0 - 55.0 fL [facility] MPV 9.2 8.8 - 13.2 fL [facility] Platelet count 356 150 - 400 k/uL [facility] Nucleated RBC 0.00 /100 WBC [facility] Specimen Blood Performing Organization Address City/State/Zipcode Phone Number [facility] DEPARTMENT OF [address] [place] [address] PATHOLOGY AND GENOMIC MEDICINE [address] [address] HOSPITAL * XR Chest 1 Vw Portable (08/17/2018 2:52 PM MANAGER OUTREACH) Specimen Narrative Performed At EXAMINATION:XR CHEST 1 [...] The remainder of the examination is unchanged. [facility]-[id number] Procedure Note Hm Interface, Radiology Results Incoming - 08/17/2018 3:25 PM MANAGER OUTREACH EXAMINATION: XR CHEST 1 VW PORTABLE CLINICAL [...] The remainder of the examination is unchanged. [facility]-[id number] Performing Organization Address [facility]/Zipcode Phone Number [facility] [address] [place] [address] * Surgical pathology request (08/17/2018 1:23 PM MANAGER OUTREACH) [facility] DEPARTMENT OF PATHOLOGY AND GENOMIC MEDICINE Surgical See link below for PDF Lab [facility] DEPARTMENT pathology Report OF PATHOLOGY report AND GENOMIC MEDICINE Result status This is Final Report for [facility] DEPARTMENT [id number] OF PATHOLOGY AND GENOMIC MEDICINE Specimen Performing Organization Address City/State/Zipcode Phone Number [facility] DEPARTMENT OF [address] [place] [address] PATHOLOGY AND GENOMIC MEDICINE * Sodium level, syringe (08/17/2018 9:41 AM MANAGER OUTREACH) Only the most recent of 2 results within the time period is included. Sodium, syringe 135 135 - 148 mEq/L [facility] Specimen Blood Performing Organization Address City/[facility] Phone Number [facility] [place] [address] PATHOLOGY AND [facility] MEDICINE [address] * Potassium, syringe (08/17/2018 9:41 AM MANAGER OUTREACH) Only the most recent of 2 results within the time period is included. Potassium, 4.6 3.5 - 5.0 mEq/L [facility] Specimen Blood Performing Organization Address City/[facility] Phone Number [facility] [place] [address] PATHOLOGY [address] * Ionized calcium, arterial (08/17/2018 9:41 AM MANAGER OUTREACH) Ionized 1.02 (L) 1.11 - 1.32 mmol/L [facility] Specimen Blood Performing Organization Address [facility] Phone Number [facility] [place] [address] PATHOLOGY AND [facility] MEDICINE [address] * Hemoglobin, syringe (08/17/2018 9:41 AM MANAGER OUTREACH) Only the most recent of 2 results within the time period is included. Hemoglobin, 10.2 (L) 12.0 - 16.0 g/dL [facility] Specimen Blood Performing Organization Address City/[facility] Phone Number [facility] [place] [address] PATHOLOGY AND [facility] MEDICINE [address] * Glucose level, syringe (08/17/2018 9:41 AM MANAGER OUTREACH) Only the most recent of 2 results within the time period is included. Glucose, 147 (H) 65 - 99 mg/dL [facility] Specimen Blood Performing Organization Address City/[facility] Phone Number [facility] [place] [address] PATHOLOGY AND [facility] MEDICINE [address] * Arterial blood gas, corrected (08/17/2018 9:41 AM MANAGER OUTREACH) [facility] pH, arterial 7.35 7.35 - 7.45 [facility] pCO2, arterial 44 35 - 45 mmHg [facility] pO2, arterial 346 (H) 80 - 90 mmHg [facility] Temperature, 35.8 Degrees C [place] Celsius [facility] O2 saturation, 100 95 - 100 % [place] arterial [facility] pH, arterial 7.37 [facility] pCO2, arterial 41 mmHg [facility] pO2, arterial 340 mmHg [facility] Base excess, -2 -2 - 2 mEq/L [facility] Specimen Blood Performing Organization Address City/State/Zipcode Phone Number [facility] [place] [address] PATHOLOGY AND GENOMIC MEDICINE [address] * Activated clotting time (08/17/2018 9:38 AM MANAGER OUTREACH) [facility] Activated 106 96 - 152 sec [place] clotting time Comment: [facility] Meter ID: [id number] HOSPITAL Wall Insulation Sprayer: Sandoval Milian Specimen Performing Organization Address City/State/Zipcode Phone Number [facility] DEPARTMENT OF [address] [place] [address] PATHOLOGY AND GENOMIC MEDICINE [address] * ECG Pre/Post Op (08/17/2018 7:12 AM MANAGER OUTREACH) [facility] Ventricular 75 [facility] rate Atrial rate 75 [facility] MT interval 146 [facility] QRSD interval 68 [facility] QT interval 376 [facility] QTC interval 419 [facility] P axis 1 38 [facility] QRS axis 1 3 [facility] T wave axis 39 [facility] MUSE EKG impression Normal sinus rhythm-Possible [facility] MUSE Inferior infarct , age undetermined-Abnormal ECG- Specimen Narrative Performed At Performing Organization Address City/[facility]/[place] [address] * Urinalysis screen and microscopy, with reflex to culture (08/17/2018 7:11 AM MANAGER OUTREACH) [facility] Specimen site Clean catch [facility] Color, UA Yellow [facility] Appearance, UA Clear [facility] Specific 1.014 1.001 - 1.035 [place] gravity, [facility] pH, UA 7.0 5.0 - 8.5 [facility] Protein, UA Negative Negative [facility] Glucose, UA Negative Negative [facility] Ketones, UA Negative Negative [facility] Bilirubin, UA Negative Negative [facility] Blood, UA Negative Negative [facility] Nitrite, UA Negative Negative [facility] Urobilinogen, <2.0 <2.0 [facility] Leukocyte Negative Negative [place] esterase, [facility] Epithelial 4 /HPF [place] cells, [facility] WBC, UA 1 0 - 4 /HPF [facility] RBC, UA 1 0 - 5 /HPF [facility] Bacteria, UA None seen None seen [facility] Yeast, UA None seen [facility] Yeast with None seen [place] [facility] Hyaline casts, 3 /LPF [facility] Specimen Urine Performing Organization Address [facility]ode Phone Number [facility] DEPARTMENT OF [address] [place] [address] PATHOLOGY AND GENOMIC MEDICINE [address] * Partial thromboplastin time, activated (08/17/2018 7:11 AM MANAGER OUTREACH) [facility] PTT 27.6 23.0 - 36.0 sec [place] Comment: [facility] PTT therapeutic range for HOSPITAL unfractionated heparin is 61.0-112.0 seconds which corresponds to Anti-Xa 0.3-0.7 U/ml. Specimen Blood Performing Organization Address [facility] Mex[facility]ode Phone Number [facility] [place] [address] PATHOLOGY AND GENOMIC MEDICINE [address] * Prothrombin time with INR (08/17/2018 7:11 AM MANAGER OUTREACH) [facility] Prothrombin 12.9 11.5 - 14.5 sec [facility] INR 1.0 [place] Comment: [facility] The International Normalized HOSPITAL Ratio (INR) is a therapeutic monitoring tool for patients who are stable on oral anticoagulant therapy. An INR of 2.0-3.0 is suggested for deep vein thrombosis/pulmonary embolism. Specimen Blood Performing Organization Address City/[facility]/Zipcode Phone Number [facility] DEPARTMENT OF [address] [place] [address] PATHOLOGY AND [facility] MEDICINE [address] * Urine culture (08/17/2018 7:11 AM MANAGER OUTREACH) Urine culture SEE COMMENTComment: [place] Bacteriuria screen negative. [facility] Specimen Performing Organization Address City/[facility]/Zipcode Phone Number [facility] [place] [address] PATHOLOGY AND [facility] MEDICINE [address] * Hemoglobin A1c (08/17/2018 7:11 AM MANAGER OUTREACH) Hemoglobin A1C 7.9 (H) 4.0 - 5.6 % [place] Comment: [facility] HbA1c cutoffs for diagnosing HOSPITAL diabetes: 4.0% - 5.6%=normal 5.7% - 6.4%=increased risk for diabetes (prediabetes) >=6.5%=diabetes Goals for glycemic control (ADA 2016) < 7.0%Target for non adults with diabetes. More or less stringent targets may be appropriate for individual patients. <7.5% Target for Children and adolescents with type 1 diabetes. Specimen Blood Performing Organization Address [facility]/Zipcode Phone Number [facility] [place] [address] PATHOLOGY [address] * Bilirubin direct (08/17/2018 7:11 AM MANAGER OUTREACH) Bilirubin <0.2 0.0 - 0.3 mg/dL [facility] Specimen Plasma specimen Performing Organization Address City/State/Zipcode Phone Number [facility] DEPARTMENT OF [address] [place] [address] PATHOLOGY AND [facility] [address] * Lipid panel (08/17/2018 7:11 AM MANAGER OUTREACH) Cholesterol 145 <200 mg/dL [facility] Triglycerides 209 (H) <150 mg/dL [facility] HDL cholesterol 40 >40 mg/dL [facility] LDL cholesterol 92Comment: Result obtained by <100 mg/dL [facility] LDL measurement [facility] Lipid [facility] interpretation Comment: [facility] Total Cholesterol HOSPITAL (mg/dL) <200 Desirable 200-239Borderline [...] mg/dL) Specimen Plasma specimen Performing Organization Address City/State/Zipcoar Phone Number [facility] DEPARTMENT OF [address] [place] [address] PATHOLOGY AND GENOMIC MEDICINE [address] * Comprehensive metabolic panel (08/17/2018 7:11 AM MANAGER OUTREACH) Sodium 133 (L) 135 - 148 mEq/L [facility] Potassium 4.9 3.5 - 5.0 mEq/L [facility] Chloride 94 (L) 98 - 112 mEq/L [facility] CO2 27 24 - 31 mEq/L [facility] Anion gap 12@ANIO 7 - 15 mEq/L [facility] BUN 13 8 - 23 mg/dL [facility] Creatinine 0.87 0.50 - 0.90 mg/dL [facility] Glucose 169 (H) 65 - 99 mg/dL [facility] Calcium 9.4 8.8 - 10.2 mg/dL [facility] Protein 7.5 6.3 - 8.3 g/dL [place] Comment: [facility] 4.6-7.0 g/dL 1 week 4.4-7.6 g/dL 7 months-1year 5.1-7.3 g/dL 1-2 years5.6-7 .5 g/dL >3 years6.0-8 .0 g/dL 18-150 6.3-8.3 g/dL Albumin 3.5 3.5 - 5.0 g/dL [facility] A/G ratio 0.9 0.7 - 3.8 [facility] Alkaline 80 35 - 104 U/L [place] phosphatase [facility] AST 43 (H) 10 - 35 U/L [facility] ALT 28 5 - 50 U/L [facility] Total bilirubin 0.5 0.0 - 1.2 mg/dL [facility] Specimen Plasma specimen Performing Organization Address City/State/Zipcode Phone Number [facility] DEPARTMENT OF [address] [place] [address] PATHOLOGY AND GENOMIC MEDICINE [place] [phone] [facility] after 02/11/2018 Insurance Type Payer Benefit Subscriber ID Effective Phone Address Plan / Dates Group Medicare MEDICARE MEDICARE xxxxxxxxxx 2006- [place], PART A AND Present [place] Medicaid MEDICAID MEDICAID xxxxxxxxx 2011-P resent Advance Directives Patient has advance care planning documents on file. For more information, kimberly mcnulty contact: Cullen Anglican [address] [place] [id number]
[2019-02-13] MEDS ORDERED: LISINOPRIL10 MG PO (00:45)
[2019-02-13] MEDS ORDERED: TRIAMTERENE-HCTZ1 EA PO (00:45)
[2019-02-13] MEDS ORDERED: HYDRALAZINE HCL25 MG PO (00:45)
[2019-02-13] MEDS ORDERED: OMEPRAZOLE40 MG PO (00:45)
[2019-02-13] MEDS ORDERED: DICYCLOMINE HCL10 MG PO (00:45)
[2019-02-13] MEDS ORDERED: SIMVASTATIN40 MG PO (00:45)
[2019-02-13 04:00] VITALS: BP 127/62
[2019-02-13 05:39] LABS: BASOPHILS # (AUTO) 0.1 (0.0-0.1); BASOPHILS % 0.5 % (0.0-1.0); EOSINOPHILS # (AUTO) 0.2 (0.0-0.4); EOSINOPHILS % 1.3 % (0.0-6.0); HEMATOCRIT 36.6 % (34.2-44.1); HEMOGLOBIN 11.9 g/dL (12.0-16.0); LYMPHOCYTES # (AUTO) 4.9 (1.0-3.2); LYMPHOCYTES % 38.4 % (18.0-39.1); MEAN CORPUSCULAR HEMOGLOBIN 26.4 pg (28-32); MEAN CORPUSCULAR HGB CONC 32.5 g/dL (31-35); MEAN CORPUSCULAR VOLUME 81.2 fL (81-99); MONOCYTES # (AUTO) 1.1 (0.2-0.8); MONOCYTES % 8.4 % (4.4-11.3); NEUTROPHILS # (AUTO) 6.5 (2.1-6.9); NEUTROPHILS % 51.1 % (38.7-80.0); PLATELET COUNT 449 x10e3/uL (140-360); RED BLOOD COUNT 4.51 x10e6/uL (3.6-5.1); RED CELL DISTRIBUTION WIDTH 13.7 % (11.7-14.4)
--- NOTE | 2019-02-13 05:43 | NUR ---
consulted physician returned call and acknowledged consult. states will be in to see the patient later today.
[2019-02-13 06:09] LABS: CREATINE KINASE MB 1.5 ng/mL (0-5.0)
--- NOTE | 2019-02-13 06:47 | NUR ---
report given to day nurse. patient is resting comfortably in bed. bed is in lowest position and call bravo is within reach. will continue to monitor patient.
[2019-02-13 06:53] LABS: ALBUMIN 3.5 g/dL (3.5-5.0); ANION GAP 14.7 mmol/L (8-16); CALCIUM 9.3 mg/dL (8.4-10.2); CREATININE, SERUM 0.91 mg/dL (0.57-1.11); POTASSIUM 4.7 mmol/L (3.5-5.1)
[2019-02-13 07:32] VITALS: BP 179/76
--- NOTE | 2019-02-13 08:46 | NUR ---
CALLED DR. ADAME'S OFFICE REGARDING RESTARTING PATIENT'S HOME MEDICATIONS, SPOKE TO CHHAYA, CHHAYA STATED THAT SHE WILL PAGE DR. GOODRICH.
[2019-02-13] MEDS ORDERED: ASPIRIN 81 MG CHEW TAB PO SCH (09:00)
[2019-02-13] MEDS ORDERED: PANTOPRAZOLE 40 MG 10ML VIAL IV SCH (09:00)
[2019-02-13] MEDS ORDERED: TRIAMTERENE/HCTZ 37.5-25 MG TAB PO PRN (09:15)
[2019-02-13] MEDS ORDERED: POLYETHYLENE GLYCOL 3350 17 GM PACK PO NR (09:15)
[2019-02-13] MEDS ORDERED: CLONIDINE HCL 0.3 MG TAB PO SCH (09:15)
[2019-02-13 09:33] VITALS: BP 179/76
[2019-02-13] MEDS: DICYCLOMINE HCL 10 MG CAP PO SCH (09:51)
[2019-02-13] MEDS: BELLADONNA ALK/PHENOBARBITAL 5 ML UDC PO SCH (09:51)
[2019-02-13 11:24] VITALS: BP 98/47
[2019-02-13] MEDS ORDERED: POLYETHYLENE GL17 GM PO (12:45)
[2019-02-13] MEDS ORDERED: MILK OF MA2400 MG/10 PO (12:47)
[2019-02-13] MEDS ORDERED: SIMETHICONE80 MG PO (12:48)
[2019-02-13] MEDS ORDERED: ANTACID PLUS A355 M2 PO (12:54)
[2019-02-13] MEDS ORDERED: HYDRALAZINE HCL 25 MG TAB PO SCH ×2 (15:00→17:00)
--- NOTE | 2019-02-13 15:21 | History and Physical ---
CHIEF COMPLAINT: Ms. Blanchard is a complex 78-year-old obese diabetic, who presented to the emergency room with complaint of abdominal discomfort. HISTORY OF PRESENT ILLNESS: The patient reports she also went to [facility] last week, where she was diagnosed with constipation, given her 1st laxative that she had ever used, but when the discomfort came back, she decided to come to the emergency room. PAST MEDICAL HISTORY: Complex with previous transsphenoidal hypophysectomy for pituitary tumor, longstanding hypertension, hypothyroidism, and type 2 adult onset diabetes. She had previous hospitalization at [facility] in July 2011 when she had rectal bleeding. Also had outpatient colonoscopy and endoscopy by Dr. Wise, which showed diverticulosis and esophagitis, hemorrhoids. MEDICATIONS: Current home medications include aspirin 81 mg daily, clonidine 0.3 mg, dicyclomine 10 mg b.i.d., glimepiride 4 mg b.i.d., hydralazine 25 mg b.i.d., lisinopril 10 mg daily, losartan 100/12.5, omeprazole 40 mg b.i.d., pantoprazole 40 mg daily, simvastatin 40 mg daily, and triamterene hydrochlorothiazide. PERSONAL AND SOCIAL HISTORY: She does not smoke or drink. Lives with family. PHYSICAL EXAMINATION: GENERAL: At this time shows an obese woman, who speaks only Gambian. Alert and oriented. VITAL SIGNS: Afebrile, blood pressure 170/70. HEAD, EYES, EARS, NOSE, AND THROAT: Unremarkable. THORAX: Heart sounds S1, S2 are equal. No murmurs. LUNGS: Clear. ABDOMEN: Protuberant. Normal bowel sounds. Nontender. EXTREMITIES: No cyanosis, clubbing, or edema. EKG is unremarkable. INITIAL LABORATORY STUDIES: In the emergency room showed a potassium value that was elevated at 5.6 and her sodium was 123, but today her values are sodium 132 and potassium 4.7. ASSESSMENT: 1. Constipation. 2. Hypothyroidism. 3. Type 2 adult-onset diabetes. 4. Mild hyponatremia. 5. Minimal hyperkalemia. PLAN: We will give IV fluids and monitor. CT scan is unremarkable. MD AYUSH Coburn/MODL /[id number] cc: MD Magali Clinton MD
[2019-02-13] MEDS ORDERED: PANTOPRAZOLE SOD 40 MG TABEC PO SCH (16:30)
[2019-02-13] MEDS ORDERED: DICYCLOMINE HCL 10 MG CAP PO SCH (16:30)
[2019-02-13] MEDS ORDERED: LISINOPRIL 10 MG TAB PO SCH (17:00)
[2019-02-13] MEDS ORDERED: SIMVASTATIN 40 MG TAB PO SCH (21:00)
--- NOTE | 2019-02-14 05:19 | Discharge Summary ---
CHIEF COMPLAINT: Ms. 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 HOSPITAL COURSE: The patient presented with a complaint of abdominal discomfort by saying that she had been given one dose of laxative at [facility] Emergency room last week. HOSPITAL COURSE: CAT scan of the abdomen is unremarkable and she is given one dose of MiraLAX and instructed that this medicine is available over the counter and she can use it at home. She is also instructed that she could use enemas as necessary. Her initial potassium elevation of 5.6, today is normal at 4.7. She is instructed to drink plenty of fluids. DISCHARGE DIAGNOSES: 1. Constipation. 2. Hyperkalemia. 3. Type 2 adult onset diabetes. 4. Hypertension. 5. Diverticulosis. 6. History of esophagitis. She will resume all of her other pre-hospital medications. She has an appointment with Dr. Wise in the coming days. MD AYUSH Coburn/MODL /[id number] cc: MD Magali Clinton MD
== END 2019-02-13 13:22 | disposition home or self-care (01) ==
LOC: ER 12:55 → ERHOLD 22:45 → IMCU 22:50
PROVIDERS: ADMIT Internal Medicine Cardiovascular Disease; ATTEND Internal Medicine Cardiovascular Disease
DX: K59.00 Constipation, unspecified (principal); E11.9 Type 2 diabetes mellitus without complications; E87.1 Hypo-osmolality and hyponatremia; E87.5 Hyperkalemia; E89.2 Postprocedural hypoparathyroidism; I10 Essential (primary) hypertension; K57.90 Diverticulosis of intestine, part unspecified, without perforation or abscess without bleeding; Z79.82 Long term (current) use of aspirin; Z79.84 Long term (current) use of oral hypoglycemic drugs
CPT/HCPCS: 36415 ×2; 74177; 80053 ×2; 81001; 82150; 82550; 82553; 82948 ×2; 83605; 83690; 84484; 85025 ×2; 87086; 93005; 99284; C9113; G0378 ×2; J1817 ×2; J7030; J7799; Q9967

== ENCOUNTER 2022-06-20 12:56 | Emergency (ER) | payer MEDICARE, OTHER ==
[~2022-06-20] VITALS: Ht 152.4 cm; Wt 78.9 kg
[~2022-06-20 12:56] MED LIST changes: +ANTACID PLUS A355 M2 PO; +DICYCLOMINE HCL10 MG PO; +LISINOPRIL10 MG PO; +MILK OF MA2400 MG/10 PO; +OMEPRAZOLE40 MG PO; +POLYETHYLENE GL17 GM PO; +SIMETHICONE80 MG PO; +TRIAMTERENE-HCTZ1 EA PO
== END 2022-06-20 13:53 | disposition home or self-care (01) ==
LOC: ER 13:00
DX: I10 Essential (primary) hypertension (principal); E11.9 Type 2 diabetes mellitus without complications; E78.5 Hyperlipidemia, unspecified; Z86.73 Personal history of transient ischemic attack (TIA), and cerebral infarction without residual deficits
CPT/HCPCS: 99283